=== PATIENT | male | born 1980 | race American Indian/Alaskan Native ===

== ENCOUNTER 2018-04-01 12:15 | Emergency (ER) | payer MEDICAID ==
[2018-04-01 12:21] VITALS: BP 136/81; PULSE 83; RESP 16; TEMP 98.9; O2SAT 99
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
== END 2018-04-01 14:29 | disposition left against medical advice (07) ==
LOC: H.ER 12:15
DX: Z04.6 Encounter for general psychiatric examination, requested by authority (principal); Z59.0 Homelessness